=== PATIENT | male | born 1985 | race Two or more races ===

== ENCOUNTER 2021-07-04 14:25 | Emergency (ER) | payer SELFPAY ==
--- NOTE | 2021-07-04 16:00 | EDM.PDOC ---
ED HPI GENERAL MEDICAL PROBLEM - General Chief Complaint: General Stated Complaint: COVID SYMPTOMS Time Seen by Provider: 07/04/21 14:42 Source of Information: Reports: Patient, RN Notes Reviewed History Limitations: Reports: No Limitations - History of Present Illness INITIAL COMMENTS - FREE TEXT/NARRATIVE: Patient is a 35-year-old male presenting to the emergency department with complaints of 1 week history of fever, chills, body aches, and cough. Patient reports that he feels like symptoms have improved today. They are visiting from [place] and her entire family is sick with similar symptoms. They did not receive Covid vaccinations. He denies any chronic medical conditions. He has not had any [id number] medications today. Denies any chest pain, nausea, vomiting, or diarrhea. Generalized Pain Score (Numeric/FACES): 10 - Related Data Allergies Allergy/AdvReac Type Severity Reaction Status Date / Time No Known Allergies Allergy Verified 07/04/21 14:46 Home Meds: Home Meds . [No Known Home Meds] 07/04/21 [History] Social & Family History - Tobacco Use Tobacco Use Status *Q: Never Tobacco User - Recreational Drug Use Recreational Drug Use: No ED ROS GENERAL - Review of Systems Review Of Systems: Comprehensive ROS is negative, except as noted in HPI. ED EXAM, GENERAL - Physical Exam Exam: See Below Exam Limited By: No Limitations General Appearance: Alert, WD/WN, No Apparent Distress Respiratory/Chest: No Respiratory Distress, Lungs Clear, Normal Breath Sounds, No Accessory Muscle Use, Chest Non-Tender Cardiovascular: Normal Peripheral Pulses, Regular Rate, Rhythm, No Edema, No Gallop, No JVD, No Murmur, No Rub Neurological: Alert, Oriented, CN II-XII Intact, Normal Cognition, Normal Gait, Normal Reflexes, No Motor/Sensory Deficits Psychiatric: Normal Affect, Normal Mood Skin Exam: Warm, Dry, Intact, Normal Color, No Rash Course - Vital Signs Last Recorded V/S: Last Vital Signs Temp 98.1 F 07/04/21 14:42 Pulse 72 07/04/21 14:42 Resp 20 07/04/21 14:42 BP 135/75 07/04/21 14:42 Pulse Ox 99 07/04/21 14:42 - Orders/Labs/Meds Labs: Laboratory Tests 07/04/21 Range/Units 14:56 SARS-CoV-2 RNA ([facility]) Positive H (NEGATIVE) - Re-Assessments/Exams Free Text/Narrative Re-Assessment/Exam: Patient is a 35-year-old male presenting to the emergency department with concerns of Covid symptoms. Report 1 week history of fever, chills, body aches, and cough. Lung sounds are clear to auscultation. Vital signs are normal with oxygen saturation of 99% on room air. I have ordered Covid testing. 07/04/21 16:27 Patient's Covid test is positive. Discussed symptomatic treatment with patient and her father. Discussed return precautions. Discharge instructions as documented. Departure - Departure Time of Disposition: 16:27 Disposition: Home, Self-Care 01 Condition: Good Clinical Impression: COVID-19 - Discharge Information *PRESCRIPTION DRUG MONITORING PROGRAM REVIEWED*: No *COPY OF PRESCRIPTION DRUG MONITORING REPORT IN PATIENT PETER: No Instructions: COVID-19 Referrals: PCP,None [Primary Care Provider] - Forms: ED Department Discharge Additional Instructions: You were seen in the emergency department today for evaluation of Covid symptoms. Covid testing was completed and was found to be positive. Recommend increase fluid intake. Use Tylenol and ibuprofen as needed for fever discomfort. If you feel that your symptoms are worsening in any way, please not hesitate to return to the emergency department for reevaluation. Sepsis Event Note (ED) - Evaluation Sepsis Screening Result: No Definite Risk - Focused Exam Vital Signs: Vital Signs Temp Pulse Resp BP Pulse Ox 07/04/21 14:42 98.1 F 72 20 135/75 99
== END 2021-07-04 16:50 | disposition home or self-care (01) ==
LOC: JD.ED 14:25
DX: U07.1 COVID-19 (principal)
CPT/HCPCS: 99283; U0002